=== PATIENT | male | born 1950 | race African-American/Black ===

== ENCOUNTER 2021-01-05 20:25 | Inpatient (IN) ==
[2021-01-05] MEDS ORDERED: hydrALAZINE 20 MG/1 ML VIAL IV STA (21:08)
[2021-01-05] MEDS ORDERED: ONDANSETRON 4 MG/2 ML VIAL IV STA (21:08)
[2021-01-05] MEDS ORDERED: SODIUM CHLORIDE 0.9% 1,000 ML IV STA (21:08)
[2021-01-05 21:24] LABS: Alanine Aminotransferase 31 U/L (16-61); Albumin 2.8 G/DL (3.4-5.0); Alkaline Phosphatase 58 U/L (45-117); Aspartate Amino Transferase 36 U/L (0-37); Blood Urea Nitrogen 11 MG/DL (7-18); Calcium 8.2 MG/DL (8.5-10.1); Carbon Dioxide 27 MMOL/L (21-32); Estimated Glom Filtration Rate 89 ML/MIN; Glucose 201 MG/DL (74-106); Potassium 3.2 MMOL/L (3.5-5.1); Sodium 143 MMOL/L (136-145); Total Protein 7.5 G/DL (6.4-8.2)
[2021-01-05 21:25] LABS: Acetaminophen < 2.0 UG/ML (10-30); Salicylate < 2.8 MG/DL (2.8-20)
[2021-01-05] MEDS ORDERED: POTASSIUM CHLORIDE 20 MEQ TABLET PO STA ×2 (21:29→21:36)
[2021-01-05] MEDS ORDERED: MAGNESIUM SULF RIDER 2 GM/50 ML PREMIX IV STA (21:36)
[2021-01-05 21:54] LABS: Barbiturates Screen,Urine Negative (Negative); Benzodiazepines Screen,Urine Negative (Negative); Cannabinoid Screen,Urine Negative (Negative); Opiate Screen,Urine Negative (Negative); Phencyclidine Screen,Urine Negative (Negative)
[2021-01-05] MEDS ORDERED: levETIRAcetam 500 MG/5 ML VIAL IV ONE (22:03)
[2021-01-05] MEDS ORDERED: LORazepam 2 MG/1 ML VIAL IV STA (22:04)
[2021-01-05] MEDS ORDERED: LORazepam 2 MG/1 ML VIAL ONE (22:07)
[2021-01-05] MEDS ORDERED: DILTIAZEM 50 MG/10 ML VIAL IV ONE (22:11)
[2021-01-05] MEDS ORDERED: DILTIAZEM 25 MG/5 ML VIAL IV ONE (22:11)
[2021-01-05] MEDS ORDERED: niCARdipine INJ 25 MG in SODIUM CHLORIDE 0.9% 240 ML IV PRN (22:13)
[2021-01-05] MEDS ORDERED: niCARdipine 25 MG/10 ML VIAL IV ONE ×3 (22:13→22:29)
[2021-01-05] MEDS ORDERED: ETOMIDATE 20 MG/10 ML VIAL IV ONE ×2 (22:16→22:39)
[2021-01-05] MEDS ORDERED: VECURONIUM 10 MG VIAL IV ONE ×2 (22:17→22:40)
[2021-01-05 22:18] LABS: Bilirubin,Urine Negative (Negative); Blood, Urine Small mg/dL (Negative); Glucose,Urine (UA) >=500 mg/dL (Negative); Ketones,Urine Negative (Negative); Mucus,Urine Occasional /LPF (Occasional); Nitrite,Urine Negative (Negative); Protein,Urine 30 MG/DL; RBC,Urine 9 /HPF (0-4); Sperm,Urine Few /HPF (Negative); Urine Appearance CLEAR (Clear); Urine Color Straw (Yellow); Urine Specific Gravity 1.006 (1.001-1.035); Urine Urobilinogen < 2.0 EU/DL (0.2-1.0)
[2021-01-05 22:31] LABS: Basophils % 0.1 % (0.0-0.8); Eosinophils % 0.3 % (0.00-10.9); Hematocrit 38.8 VOL% (42.0-52.0); Hemoglobin 12.2 GM/DL (14.0-18.0); Immature Granulocytes % 0.7 %; Lymphocytes # 2.6 10*3/uL (1.4-4.0); Lymphocytes % 18.3 % (21.2-54.2); Mean Corpuscular HGB Conc 31.4 GM/DL (32-36); Mean Corpuscular Volume 103.2 FL (87-102); Mean Platelet Volume 9.7 FL (9.6-12.0); Monocytes % 8.8 % (1.7-12.7); Neutrophils % 71.8 % (38.7-73.9); Platelet Count 405 T/CUMM (130-400); Red Blood Count 3.76 MC/CUMM (3.8-5.5); Red Cell Distribution Width 13.3 % (9.3-17.3); White Blood Count 13.9 T/CUMM (4-12)
[2021-01-05 23:22] LABS: ABG Base Excess 1.5 MMOL/L (-2.5-2.5); ABG HCO3 25.7 MMOL/L (20-26); ABG Oxygen Saturation 99.8 % (95-100); ABG PCO2 53.4 MM HG (35-48); ABG PH 7.334 (7.35-7.45); ABG TCO2 25.4 MMOL/L (23-27)
[2021-01-06] MEDS ORDERED: POTASSIUM CHLORIDE 20 MEQ PACK NG STA (00:41)
[2021-01-06] MEDS ORDERED: ACETAMINOPHEN 325 MG TABLET PO PRN (00:42)
[2021-01-06] MEDS ORDERED: ALBUTEROL 2.5 MG/3 ML NEB RESP TX PRN (00:42)
[2021-01-06] MEDS ORDERED: LACTULOSE 20 GM/30 ML UDCUP PO PRN (00:42)
[2021-01-06] MEDS ORDERED: ONDANSETRON 4 MG/2 ML VIAL IV PRN (00:42)
[2021-01-06] MEDS ORDERED: MAGNESIUM SULF RIDER 4 GM/100 ML PREMIX IV PRN (00:52)
[2021-01-06] MEDS ORDERED: MAGNESIUM SULF RIDER 2 GM/50 ML PREMIX IV PRN (00:52)
[2021-01-06] MEDS ORDERED: MIDAZOLAM 100 MG in SODIUM CHLORIDE 0.9% 80 ML IV PRN (01:19)
[2021-01-06] MEDS ORDERED: fentaNYL INJ 5,000 MCG in SODIUM CHLORIDE 0.9% 150 ML IV PRN (01:19)
[2021-01-06] MEDS: PANTOPRAZOLE 40 MG VIAL IV SCH (02:26)
[2021-01-06] MEDS: ENOXAPARIN 40 MG/0.4 ML SYRINGE SUBCUT SCH (02:26)
[2021-01-06] MEDS: SODIUM CHLORIDE 0.9% 1,000 ML IV SCH ×4 (02:26→20:13)
[2021-01-06 04:42] LABS: ABG Base Excess 3.1 MMOL/L (-2.5-2.5); ABG HCO3 27.2 MMOL/L (20-26); ABG Oxygen Saturation 99.7 % (95-100); ABG PH 7.474 (7.35-7.45); ABG TCO2 23.3 MMOL/L (23-27)
[2021-01-06 05:06] LABS: Basophils % 0.1 % (0.0-0.8); Eosinophils % 0.3 % (0.00-10.9); Hematocrit 30.8 VOL% (42.0-52.0); Immature Granulocytes % 0.4 %; Immature Granulocytes Absolute 0.03 #; Lymphocytes # 1.4 10*3/uL (1.4-4.0); Lymphocytes % 18.4 % (21.2-54.2); Mean Corpuscular HGB Conc 32.8 GM/DL (32-36); Mean Platelet Volume 9.7 FL (9.6-12.0); Monocytes % 10.9 % (1.7-12.7); Neutrophils % 69.9 % (38.7-73.9); Platelet Count 339 T/CUMM (130-400); Red Blood Count 3.05 MC/CUMM (3.8-5.5); Red Cell Distribution Width 13.5 % (9.3-17.3)
[2021-01-06 05:08] LABS: Hemoglobin 10.1 GM/DL (14.0-18.0); White Blood Count 7.4 T/CUMM (4-12)
[2021-01-06 05:31] LABS: Albumin 2.6 G/DL (3.4-5.0); Bilirubin,Total 0.5 MG/DL (0.20-1.00); Calcium 7.8 MG/DL (8.5-10.1); Potassium 2.8 MMOL/L (3.5-5.1); Total Protein 6.5 G/DL (6.4-8.2)
[2021-01-06] MEDS: POTASSIUM CHLORIDE RIDER 20 MEQ/100 ML PREMIX IV PRN ×4 (05:58→20:48)
[2021-01-06 06:33] LABS: Folate 16.3 NG/ML (5.38-24.0)
[2021-01-06] MEDS ORDERED: LACTATED RINGERS 1,000 ML IV ONE (06:49)
[2021-01-06] MEDS ORDERED: NOREPINEPHRINE 8 MG in SODIUM CHLORIDE 0.9% 242 ML IV PRN (07:00)
[2021-01-06] MEDS ORDERED: LACTATED RINGERS 500 ML IV ONE (14:15)
[2021-01-07] MEDS: SODIUM CHLORIDE 0.9% 1,000 ML IV SCH ×4 (00:37→20:25)
[2021-01-07] MEDS: ENOXAPARIN 40 MG/0.4 ML SYRINGE SUBCUT SCH (00:37)
[2021-01-07] MEDS: PANTOPRAZOLE 40 MG VIAL IV SCH (00:37)
[2021-01-07 04:04] LABS: ABG Base Excess 0.2 MMOL/L (-2.5-2.5); ABG HCO3 24.6 MMOL/L (20-26); ABG PCO2 34.4 MM HG (35-48); ABG PH 7.448 (7.35-7.45); ABG PO2 85.2 MM HG (80-95); ABG TCO2 21.8 MMOL/L (23-27)
[2021-01-07 04:05] LABS: Basophils % 0.1 % (0.0-0.8); Eosinophils % 0.4 % (0.00-10.9); Hematocrit 28.3 VOL% (42.0-52.0); Hemoglobin 9.1 GM/DL (14.0-18.0); Immature Granulocytes % 0.3 %; Immature Granulocytes Absolute 0.02 #; Lymphocytes # 1.6 10*3/uL (1.4-4.0); Lymphocytes % 22.5 % (21.2-54.2); Mean Corpuscular HGB Conc 32.2 GM/DL (32-36); Mean Corpuscular Volume 102.9 FL (87-102); Mean Platelet Volume 9.4 FL (9.6-12.0); Monocytes % 12.4 % (1.7-12.7); Neutrophils % 64.3 % (38.7-73.9); Platelet Count 288 T/CUMM (130-400); Red Blood Count 2.75 MC/CUMM (3.8-5.5); Red Cell Distribution Width 14.1 % (9.3-17.3); White Blood Count 7.1 T/CUMM (4-12)
[2021-01-07 04:35] LABS: Albumin 2.2 G/DL (3.4-5.0); Bilirubin,Total 0.5 MG/DL (0.20-1.00); Calcium 7.4 MG/DL (8.5-10.1); Potassium 4.1 MMOL/L (3.5-5.1); Total Protein 5.6 G/DL (6.4-8.2)
[2021-01-07 04:40] LABS: Osmolality,Calculated 278.3 MOS/KG (273-304)
[2021-01-07] MEDS ORDERED: LORazepam 2 MG/1 ML VIAL ONE (08:57)
[2021-01-07] MEDS: LORazepam 2 MG/1 ML VIAL IV PRN (08:58)
[2021-01-07] MEDS ORDERED: ZIPRASIDONE 20 MG/1 ML VIAL IM ONE ×2 (09:00→11:00)
[2021-01-07] MEDS ORDERED: POTASSIUM PHOSPHATE 30 MMOL in SODIUM CHLORIDE 0.9% 250 ML IV ONE (09:00)
[2021-01-07] MEDS ORDERED: ZIPRASIDONE 20 MG/1 ML VIAL IM PRN (09:20)
[2021-01-07] MEDS: DEXMEDETOMIDINE 200 MCG in SODIUM CHLORIDE 0.9% 48 ML IV PRN ×2 (10:23→20:27)
[2021-01-07] MEDS ORDERED: HALOPERIDOL 5 MG/ML AMP IM PRN (10:36)
[2021-01-08] MEDS: ENOXAPARIN 40 MG/0.4 ML SYRINGE SUBCUT SCH (01:29)
[2021-01-08] MEDS: PANTOPRAZOLE 40 MG VIAL IV SCH (01:45)
[2021-01-08] MEDS: SODIUM CHLORIDE 0.9% 1,000 ML IV SCH ×5 (01:45→17:30)
[2021-01-08 04:30] LABS: ABG Base Excess -2.1 MMOL/L (-2.5-2.5); ABG HCO3 22.5 MMOL/L (20-26); ABG Oxygen Saturation 95.1 % (95-100); ABG PCO2 37.7 MM HG (35-48); ABG PH 7.393 (7.35-7.45); ABG PO2 75.2 MM HG (80-95); ABG TCO2 23.6 MMOL/L (23-27)
[2021-01-08 04:35] LABS: Basophils % 0.1 % (0.0-0.8); Eosinophils # 0.1 10*3/uL (0.0-0.87); Eosinophils % 0.8 % (0.00-10.9); Hematocrit 33.1 VOL% (42.0-52.0); Hemoglobin 10.3 GM/DL (14.0-18.0); Immature Granulocytes % 0.3 %; Immature Granulocytes Absolute 0.02 #; Lymphocytes # 0.9 10*3/uL (1.4-4.0); Lymphocytes % 11.6 % (21.2-54.2); Mean Corpuscular HGB Conc 31.1 GM/DL (32-36); Mean Corpuscular Volume 104.7 FL (87-102); Mean Platelet Volume 9.8 FL (9.6-12.0); Monocytes % 9.5 % (1.7-12.7); Neutrophils % 77.7 % (38.7-73.9); Platelet Count 322 T/CUMM (130-400); Red Blood Count 3.16 MC/CUMM (3.8-5.5); Red Cell Distribution Width 13.9 % (9.3-17.3); White Blood Count 7.9 T/CUMM (4-12)
[2021-01-08 04:49] LABS: Albumin 2.2 G/DL (3.4-5.0); Bilirubin,Total 0.4 MG/DL (0.20-1.00); Calcium 7.9 MG/DL (8.5-10.1); Osmolality,Calculated 276.4 MOS/KG (273-304); Potassium 4.1 MMOL/L (3.5-5.1); Total Protein 6.1 G/DL (6.4-8.2)
[2021-01-08] MEDS: DEXMEDETOMIDINE 200 MCG in SODIUM CHLORIDE 0.9% 48 ML IV PRN (05:55)
[2021-01-08] MEDS ORDERED: INFLUENZA VIRUS VACCINE 0.5 ML SYRINGE IM ONE (09:00)
[2021-01-08] MEDS ORDERED: hydrALAZINE 20 MG/1 ML VIAL IV PRN (16:58)
[2021-01-08] MEDS ORDERED: LORazepam 2 MG/1 ML VIAL ONE (17:11)
[2021-01-08] MEDS: LORazepam 2 MG/1 ML VIAL IV PRN (17:17)
[2021-01-08] MEDS: CLORAZEPATE 3.75 MG TABLET PO SCH ×2 (17:18→20:11)
[2021-01-08] MEDS ORDERED: NIFEdipine 10 MG CAPSULE PO PRN (17:52)
[2021-01-08] MEDS: cloNIDine 0.1 MG TABLET PO SCH (18:08)
[2021-01-09] MEDS: ENOXAPARIN 40 MG/0.4 ML SYRINGE SUBCUT SCH (00:03)
[2021-01-09] MEDS: PANTOPRAZOLE 40 MG VIAL IV SCH (00:03)
[2021-01-09] MEDS: cloNIDine 0.1 MG TABLET PO SCH ×4 (00:03→18:44)
[2021-01-09] MEDS: SODIUM CHLORIDE 0.9% 1,000 ML IV SCH ×4 (01:19→18:50)
[2021-01-09] MEDS: CLORAZEPATE 3.75 MG TABLET PO SCH ×2 (08:28→20:29)
[2021-01-10] MEDS: cloNIDine 0.1 MG TABLET PO SCH ×4 (00:37→17:47)
[2021-01-10] MEDS: ENOXAPARIN 40 MG/0.4 ML SYRINGE SUBCUT SCH (00:37)
[2021-01-10] MEDS: PANTOPRAZOLE 40 MG VIAL IV SCH (00:38)
[2021-01-10 03:57] LABS: Eosinophils # 0.1 10*3/uL (0.0-0.87); Eosinophils % 1.6 % (0.00-10.9); Hematocrit 31.1 VOL% (42.0-52.0); Hemoglobin 10.4 GM/DL (14.0-18.0); Immature Granulocytes % 0.4 %; Immature Granulocytes Absolute 0.02 #; Lymphocytes # 1.1 10*3/uL (1.4-4.0); Lymphocytes % 22.6 % (21.2-54.2); Mean Corpuscular HGB Conc 33.4 GM/DL (32-36); Mean Corpuscular Volume 100.3 FL (87-102); Mean Platelet Volume 10.1 FL (9.6-12.0); Monocytes % 12.4 % (1.7-12.7); Platelet Count 272 T/CUMM (130-400); Red Cell Distribution Width 13.4 % (9.3-17.3)
[2021-01-10] MEDS: SODIUM CHLORIDE 0.9% 1,000 ML IV SCH ×2 (04:11→11:45)
[2021-01-10 04:21] LABS: Calcium 7.8 MG/DL (8.5-10.1); Osmolality,Calculated 274.5 MOS/KG (273-304); Potassium 3.4 MMOL/L (3.5-5.1)
[2021-01-10] MEDS: levETIRAcetam 500 MG TABLET PO SCH ×2 (08:49→21:16)
[2021-01-10] MEDS: NIFEdipine 10 MG CAPSULE PO SCH ×2 (08:50→21:16)
[2021-01-10] MEDS: lisinopriL 10 MG TABLET PO SCH (08:50)
[2021-01-10] MEDS: CLORAZEPATE 3.75 MG TABLET PO SCH ×2 (08:51→21:16)
[2021-01-10] MEDS: POTASSIUM CHLORIDE 20 MEQ TABLET PO PRN ×3 (11:25→16:19)
[2021-01-11] MEDS: cloNIDine 0.1 MG TABLET PO SCH ×2 (01:08→06:20)
[2021-01-11] MEDS: PANTOPRAZOLE 40 MG VIAL IV SCH (02:06)
[2021-01-11] MEDS: ENOXAPARIN 40 MG/0.4 ML SYRINGE SUBCUT SCH (02:06)
[2021-01-11] MEDS: levETIRAcetam 500 MG TABLET PO SCH (08:12)
[2021-01-11] MEDS: NIFEdipine 10 MG CAPSULE PO SCH (08:12)
[2021-01-11] MEDS: lisinopriL 10 MG TABLET PO SCH (08:12)
[2021-01-11] MEDS: CLORAZEPATE 3.75 MG TABLET PO SCH (08:13)
[2021-01-11 08:17] VITALS: BP 90/52
== END 2021-01-11 10:30 | disposition home or self-care (01) | DRG 917 ==
LOC: EDUNIT# → EDBD → N.ED 20:25 → SUATTDRO 22:52 → N.EDINP 22:52 → N.CC 01-06 00:39 → N.3E 01-10 10:24
PROVIDERS: ADMIT Internal Medicine; ATTEND Hospitalist